=== PATIENT | male | born 1990 | race Caucasian/White ===

== ENCOUNTER 2020-07-19 20:06 | Emergency (ER) | payer OTHER, SELFPAY ==
--- NOTE | ~2020-07-19 | XR_ITS ---
EXAMINATION: XR chest 2V DATE: 07/19/2020 21:02 INDICATION: Cough and congestion TECHNIQUE: PA and lateral views of the chest were obtained. COMPARISON: None FINDINGS: The lungs are clear with no focal airspace opacities, pulmonary edema, pleural effusion or pneumothor ax. The cardiomediastinal silhouette is normal. Mild thoracic spondylosis. IMPRESSION: 1. No acute cardiopulmonary disease. Reviewed, dictated and finalized at location A. [place] RIGGER
[2020-07-19 20:11] VITALS: BP 126/81; PULSE 98; RESP 22; TEMP 36.3; O2SAT 100
--- NOTE | 2020-07-19 20:52 | ED.URI ---
HPI - URI/Sore Throat General Chief Complaint: Upper Respiratory Infection Stated Complaint: congestion, cough, boil on groin Time Seen by Provider: 07/19/20 20:42 Source: patient Mode of arrival: ambulatory Limitations: no limitations History of Present Illness HPI Narrative: This 30-year-old male comes into the emergency department tonight with complaints of cough and shortness of breath. He denies any fevers or chills. Patient states he was recently tested for Covid at the drive[facility]through [facility] screening location. He was told that this was negative. He notes that his young daughter also has similar symptoms. He states that he has been taking Mucinex with no relief. Patient also complains of a boil in his groin that recently opened up. Patient states he is concerned that it may be infected. Related Data Home Medications Medication Instructions Recorded Confirmed No Home Medications 07/19/20 07/19/20 Allergies Allergy/AdvReac Type Severity Reaction Status Date / Time No Known Allergies Allergy Verified 07/19/20 20:12 Review of Systems Review of Systems: Narrative: CONSTITUTIONAL: Denies fever, chills, or sweats. EYES: Denies visual changes, redness, or discharge. ENT: Denies rhinorrhea, congestion, sore throat, or otalgia. CARDIOVASCULAR: Denies chest pain, palpitations, or edema. RESPIRATORY: Endorses cough and dyspnea. GASTROINTESTINAL: Denies abdominal pain, nausea, vomiting, or diarrhea. GENITOURINARY: Denies dysuria or hematuria. SKIN: Denies rash or itching. MUSCULOSKELETAL: Denies back pain, joint pain, or myalgia. NEUROLOGIC: Denies headache, numbness, dizziness, or weakness. PSYCHIATRIC: Denies anxiety or depression. Exam Narrative: Exam Narrative: GENERAL: Well-appearing, well-nourished, and in no acute distress. HEAD: Normocephalic, atraumatic. EYES: PERRLA and EOMI. ENT: Nares clear, no rhinorrhea or epistaxis. Mucous membranes moist. NECK: Supple. No adenopathy or masses. No carotid bruits or JVD CHEST: No respiratory distress. Rhonchi diffusely HEART: Regular rate and rhythm. No murmur heard. Normal peripheral pulses. ABDOMEN: Soft, nontender, nondistended, normal active bowel sounds. : Normal external genitalia, small open cyst seen in the right groin crease under the R scrotum EXTREMITIES: Normal range of motion. No edema. SKIN: Warm, dry, no rash. NEURO: No focal deficits. Alert and oriented x3. PSYCH: Normal mood and affect. Course Reevaluation(s) Reevaluation #1: Pt is sitting resting comfortably, with no issues at this time. Time: 21:35 Vital Signs Vital signs: Vital Signs Temperature 36.3 C L 07/19/20 20:11 Pulse Rate 98 07/19/20 20:11 Respiratory Rate 22 H 07/19/20 20:11 Blood Pressure 126/81 07/19/20 20:11 Pulse Oximetry 100 07/19/20 20:11 Temperature 36.3 C L 07/19/20 20:11 Pulse Rate 98 07/19/20 20:11 Respiratory Rate 22 H 07/19/20 20:11 Blood Pressure 126/81 07/19/20 20:11 Pulse Oximetry 100 07/19/20 20:11 MDM - URI/Sore Throat MDM Narrative Medical decision making narrative: In brief this is a 30-year-old male came into the ER with multiple complaints. First patient stated that he had a cyst that opened up and drained in his groin. Patient states that he was curious if this was infected. Visual inspection of the area did show an open cyst, there was no active signs of infection. This may have been an early sebaceous cyst. Antibiotics not indicated at this time. Second patient was complaining of viral URI symptoms did have rhonchi on exam. Chest x-ray was clear. Likely source viral etiology. Did encourage patient to continue going with symptomatic medications and humidified air. Medical Records Attestation: I reviewed the patient's medical records. Imaging Data Attestation: I personally reviewed and interpreted this imaging study as follows: Radiologist's impression: ITS Impressions Chest X-Ray 07/19/20 21:08 I
== END 2020-07-19 22:03 | disposition home or self-care (01) ==
PROVIDERS: Emergency Provider Emergency Medicine
DX: B34.9 Viral infection, unspecified (principal); L72.9 Follicular cyst of the skin and subcutaneous tissue, unspecified
CPT/HCPCS: 71046; 99283

== ENCOUNTER 2020-08-12 18:00 | Emergency (ER) | payer OTHER, SELFPAY ==
[2020-08-12 18:12] VITALS: BP 138/76; PULSE 100; RESP 18; TEMP 36.7; O2SAT 100
[2020-08-12 19:12] LABS: Add Urine Microscopic? NO; Appearance Urine Clear (Clear); Bilirubin Urine Negative (Negative); Blood Urine Negative (Negative); Color Urine Straw (Yellow); Glucose Urine UA Negative (Negative); Ketones Urine Negative (Negative); Leukocyte Esterase Ur Negative LEU/UL (Negative); Nitrate Urine Negative (Negative); Protein Urine Negative (Negative); Specific Grav Ur 1.008 (1.001-1.035); Urobilinogen Urine Negative mg/dL (<2.0)
--- NOTE | 2020-08-12 19:16 | ED.GENADULT ---
HPI - General Adult General Chief complaint: Urogenital-Male Stated complaint: discharge Time Seen by Provider: 08/12/20 19:11 Source: patient Mode of arrival: ambulatory Limitations: no limitations History of Present Illness HPI narrative: Patient is a 30-year-old male who presents with some penile discharge described as white for the last several days denies any new sexual partners but does note that he has had gonorrhea in the past patient also notes small lesion along the left groin near the scrotum where he has a small boil that he drained with history of boils. Patient denies other concerns or symptoms does not currently have a primary care doctor Related Data Allergies Allergy/AdvReac Type Severity Reaction Status Date / Time No Known Allergies Allergy Verified 07/19/20 20:12 Review of Systems Review of Systems: All systems reviewed & are unremarkable except as noted in HPI and below PMFSH Social History Social History (Updated 08/12/20 @ 19:17 by Gee Mccullough PA-C) Smoking status: Current every day smoker Exam Narrative: Exam Narrative: GENERAL: Well-appearing, well-nourished, and in no acute distress. HEAD: Normocephalic, atraumatic. EYES: PERRLA and EOMI. ENT: Nares clear, no rhinorrhea or epistaxis. Mucous membranes moist. CHEST: Clear to auscultation. No respiratory distress. No wheezes rales or rhonchi HEART: Regular rate and rhythm. No murmur heard. EXTREMITIES: Normal range of motion. No edema. Small 1 cm nonerythematous cystic lesion to the left groin along the scrotum no cellulitic changes or drainage SKIN: Warm, dry, no rash. NEURO: No focal deficits. Alert and oriented x3. PSYCH: Normal mood and affect. Course Course Emergency Course: Patient in the room aware of case findings treatment plan diagnosis resting in the room comfortably will be discharged on antibiotics with follow-up with primary care given reasons to return patient feels comfortable with this plan Vital Signs Vital signs: Vital Signs Temperature 98.1 F 08/12/20 18:12 Pulse Rate 100 08/12/20 18:12 Respiratory Rate 18 08/12/20 18:12 Blood Pressure 138/76 08/12/20 18:12 Pulse Oximetry 100 08/12/20 18:12 Temperature 98.1 F 08/12/20 18:12 Pulse Rate 100 03/09/21 18:12 Respiratory Rate 18 08/12/20 18:12 Blood Pressure 138/76 08/12/20 18:12 Pulse Oximetry 100 08/12/20 18:12 Medical Decision Making MDM Narrative Medical decision making narrative: Patient presented with penile discharge small scrotal lesion will be discharged with outpatient follow-up placed on antibiotic Vital Signs Vital Signs: Vital Signs Temperature 98.1 F 08/12/20 18:12 Pulse Rate 100 08/12/20 18:12 Respiratory Rate 18 08/12/20 18:12 Blood Pressure 138/76 08/12/20 18:12 Pulse Oximetry 100 08/12/20 18:12 Temperature 98.1 F 08/12/20 18:12 Pulse Rate 100 08/12/20 18:12 Respiratory Rate 18 08/12/20 18:12 Blood Pressure 138/76 08/12/20 18:12 Pulse Oximetry 100 08/12/20 18:12 Lab Data Labs: Lab Results 08/12/20 08/12/20 Range/Units 19:00 19:00 Urine Color Straw (Yellow) Urine Appearance Clear (Clear) Urine pH 6.0 (5.0-9.0) Ur Specific [place] 1.008 (1.001-1.035) Urine Protein Negative (Negative) mg/dL Urine Glucose (UA) Negative (Negative) mg/dL Urine Ketones Negative (Negative) mg/dL Ur Blood (Man) Negative (Negative) Urine Nitrate Negative (Negative) Urine Bilirubin Negative (Negative) Urine Urobilinogen Negative (<2.0) mg/dL Leukocyte Esterase Rfl Negative (Negative) SANGEETHA/UL C.trachomatis RNA (TMA) Pending N.gonorrhoeae RNA (TMA) Pending T. vaginalis Amp RNA Pending Discharge Plan Discharge Clinical Impression: Urethritis, Abscess Patient Disposition: Home, Self-Care Condition: Stable Instructions: Antibiotic Form, Nonspecific Urethritis in Men (ED), Abscess (ED) Additional Inst
[2020-08-12 19:46] VITALS: BP 132/83; PULSE 95; RESP 16; TEMP 36.6; O2SAT 100
[2020-08-12] MEDS: cefTRIAXone 250 MG VIAL 500 MG IM (19:47)
== END 2020-08-12 19:50 | disposition home or self-care (01) ==
LOC: ANHED 19:39
PROVIDERS: Physician Assistant; Emergency Provider Emergency Medicine
DX: N34.2 Other urethritis (principal); N49.2 Inflammatory disorders of scrotum; F17.200 Nicotine dependence, unspecified, uncomplicated
CPT/HCPCS: 81003; 87491; 87591; 87661; 96372; 99283; J0696

== ENCOUNTER 2021-01-19 10:32 | Emergency (ER) | payer OTHER, SELFPAY ==
[2021-01-19 10:33] VITALS: BP 109/68; PULSE 106; RESP 20; TEMP 37.1; O2SAT 98
[2021-01-19 13:01] LABS: Add Urine Microscopic? YES; Appearance Urine Cloudy (Clear); Bilirubin Urine Negative (Negative); Blood Urine Negative (Negative); Color Urine Yellow (Yellow); Glucose Urine UA Negative (Negative); Ketones Urine Negative (Negative); Leukocyte Esterase Ur Negative LEU/UL (Negative); Nitrate Urine Negative (Negative); Protein Urine Negative (Negative); RBC Urine 0-2 /hpf (0-2); Specific Grav Ur 1.013 (1.001-1.035); Squamous Epithelial Cell Urine Rare /hpf (Few); Urobilinogen Urine Negative mg/dL (<2.0); WBC Urine 0-3 /hpf
--- NOTE | 2021-01-19 13:20 | PC.NURSE ---
Urine cup sent to lab earlier with UA. Add on specimen called to lab at this time.
--- NOTE | 2021-01-19 14:19 | ED.FALL ---
HPI - Fall General Chief Complaint: Urogenital-Male Stated Complaint: GROIN PAIN Time Seen by Provider: 01/19/21 11:52 Source: patient and EMS Mode of arrival: ambulatory Limitations: no limitations History of Present Illness HPI Narrative: Patient a 30-year-old male who presents to emergency department for evaluation of some groin pain testicular pain has been going on for 2 months notes that he had been treated and tested for gonorrhea patient notes he had not been with a sexual partner that he believed he had obtained the infection from patient denies any dysuria or other complaints presents in no distress denies any swelling or deformity of the scrotum or testicles Related Data Home Medications Medication Instructions Recorded Confirmed buspirone 5 mg PO BID 01/19/21 01/19/21 Allergies Allergy/AdvReac Type Severity Reaction Status Date / Time No Known Allergies Allergy Verified 01/19/21 11:51 Review of Systems Review of Systems: All systems reviewed & are unremarkable except as noted in HPI and below PMFSH Social History Social History Smoking status: Current every day smoker Gender identity (if verbalized by the patient): Male Exam Narrative: GENERAL: Well-appearing, well-nourished, and in no acute distress. HEAD: Normocephalic, atraumatic. EYES: PERRLA and EOMI. ENT: Nares clear, no rhinorrhea or epistaxis. Mucous membranes moist. CHEST: Clear to auscultation. No respiratory distress. No wheezes rales or rhonchi HEART: Regular rate and rhythm. No murmur heard. Normal peripheral pulses. ABDOMEN: Soft, nontender, nondistended EXTREMITIES: Normal range of motion. No edema. SKIN: Warm, dry, no rash. NEURO: No focal deficits. Alert and oriented x3. PSYCH: Normal mood and affect. Course Course Emergency Course: Patient in the room in no distress case findings were reviewed he understands that he will need to follow-up for his gonorrhea chlamydia culture. He is afebrile nontoxic-appearing in no distress and will be followed on an outpatient basis notes that he will follow up with urology as instructed and understands reasons to return Vital Signs Vital signs: Vital Signs Temperature 98.8 F 01/19/21 10:33 Pulse Rate 106 H 01/19/21 10:33 Respiratory Rate 20 08/16/21 10:33 Blood Pressure 109/68 01/19/21 10:33 Pulse Oximetry 98 01/19/21 10:33 Temperature 98.8 F 01/19/21 10:33 Pulse Rate 106 H 01/19/21 10:33 Respiratory Rate 20 01/19/21 10:33 Blood Pressure 109/68 01/19/21 10:33 Pulse Oximetry 98 01/19/21 10:33 MDM - Fall MDM Narrative Medical decision making narrative: Patient with dysuria will be followed on an outpatient basis agreeing to follow-up as instructed likely urethritis given his history. No hematuria or urinary tract infection noticed on initial exam will have urine culture and gonorrhea and Chlamydia culture sent off Lab Data Labs: Lab Results 01/19/21 01/19/21 Range/Units 12:46 12:48 Urine Color Yellow (Yellow) Urine Appearance Cloudy H (Clear) Urine pH 6.0 (5.0-9.0) Ur Specific [place] 1.013 (1.001-1.035) Urine Protein Negative (Negative) mg/dL Urine Glucose (UA) Negative (Negative) mg/dL Urine Ketones Negative (Negative) mg/dL Ur Blood (Man) Negative (Negative) Urine Nitrate Negative (Negative) Urine Bilirubin Negative (Negative) Urine Urobilinogen Negative (<2.0) mg/dL Leukocyte Esterase Rfl Negative (Negative) SANGEETHA/UL Urine RBC 0-2 (0-2) /hpf Urine WBC 0-3 /hpf Ur Squamous Epith Cells Rare (Few) /hpf C.trachomatis RNA (TMA) Pending N.gonorrhoeae RNA (TMA) Pending Urine Characteristics Cloudy Discharge Plan Discharge Clinical Impression: Urethritis Patient Disposition: Home, Self-Care Condition: Stable Instructions: Antibiotic Fo
[2021-01-19 14:30] VITALS: BP 113/84; PULSE 80; RESP 18; O2SAT 99
== END 2021-01-19 14:35 | disposition home or self-care (01) ==
PROVIDERS: Emergency Medicine Emergency Medical Services; Emergency Provider Emergency Medicine; PCP Family Medicine
DX: N34.2 Other urethritis (principal); F17.200 Nicotine dependence, unspecified, uncomplicated
CPT/HCPCS: 81001; 87086; 87491; 87591; 99283

== ENCOUNTER 2023-01-04 09:28 | Emergency (ER) | payer OTHER, SELFPAY ==
--- NOTE | ~2023-01-04 | XR_ITS ---
Clinical Indication: Syncope PA and lateral views of the chest: Comparison: 07/19/2020 Findings: The lungs are clear, without evidence of focal consolidation or pleural effusion. Possible COPD. Cardiomediastinal silhouette is within normal limits. Bones and soft tissues are unremarkable. Impression: Possible COPD. Clear lungs. Reviewed, dictated and finalized at location . Impression: Possible COPD. Clear lungs.
--- NOTE | ~2023-01-04 | CT_ITS ---
EXAMINATION: CT brain wo con DATE: 01/04/2023 10:51 INDICATION: Syncope. TECHNIQUE: Computed tomography (CT) of the head was performed without intravenous contrast. The mA wa s adjusted according to patient size. Iterative reconstruction technique was employed. The dose-lengt h product was 605.33 mGy-cm. COMPARISON: None FINDINGS: There is no intracranial hemorrhage, acute infarction, or abnormal intracranial mass lesion . The ventricles are normal in size. The orbits are normal. There is mild mucosal thickening in the p aranasal sinuses. The mastoid air cells are normal. IMPRESSION: 1. Normal brain. Reviewed, dictated and finalized at location A. IMPRESSION: 1. Normal brain.
[2023-01-04 09:27] VITALS: BP 110/73; PULSE 79; RESP 16; TEMP 36.4; O2SAT 98
--- NOTE | 2023-01-04 09:34 | ECG_ITS ---
Measurements Intervals [place] Rate: 81 P: 56 [place]: 138 QRS: 47 QRSD: 100 T: 44 QT: 389 QTc: 454 Interpretive Statements SINUS RHYTHM INTERPRETATION BASED ON A DEFAULT AGE OF 40 YEARS NO PREVIOUS ECG AVAILABLE FOR COMPARISON Electronically Signed On 01-04-2023 13:55:25 CDT by La Nena Garcia M.D.
[2023-01-04 09:37] VITALS: PULSE 77
[2023-01-04 09:38] VITALS: O2SAT 98
[2023-01-04 09:38] LABS: Glucose Point of Care 95 mg/dl (65-105)
--- NOTE | 2023-01-04 09:38 | ED.SYNCOPE ---
HPI - Syncope General Chief Complaint: Syncope Stated Complaint: AMS Time Seen by Provider: 01/04/23 09:34 Source: patient Mode of arrival: EMS Limitations: other (patient does not fully remember incident) History of Present Illness HPI narrative: This is a 32-year-old male that presents to the emergency department for syncopal episode today. Reports he was at work and started to feel lightheaded. Reports he bent forward and saw some black spots in his vision. When he stood up he passed out. Reports no prior syncopal episodes. He does think that he hit his head. He woke up with the ambulance crew arrived. He does not have any symptoms currently. Denies any prodromal chest pain, palpitations or shortness of breath. Denies visual changes, vomiting, numbness, or weakness. Related Data Home Medications Medication Instructions Recorded Confirmed buspirone 5 mg tablet 5 mg PO BID 01/19/21 01/19/21 Allergies Allergy/AdvReac Type Severity Reaction Status Date / Time No Known Allergies Allergy Verified 01/04/23 09:40 Review of Systems Review of Systems: CONSTITUTIONAL: Denies fever EYES: Denies visual changes CARDIOVASCULAR: Denies chest pain, palpitations, or edema. RESPIRATORY: Denies dyspnea. GASTROINTESTINAL: Denies vomiting NEUROLOGIC: Denies numbness, or weakness. All systems reviewed & are unremarkable except as noted in HPI and below PMFSH Past Medical History Medical History (Updated 01/04/23 @ 12:05 by Odalys Fuller PA-C) History of anxiety Social History Social History Smoking status: Current every day smoker Gender identity (if verbalized by the patient): Male Exam Narrative: GENERAL: Well-appearing, well-nourished, and in no acute distress. HEAD: Normocephalic, atraumatic. EYES: PERRLA and EOMI. ENT: Nares clear, no rhinorrhea or epistaxis. Mucous membranes moist. Oropharynx without tonsillar hypertrophy exudate or other lesions. Bilateral TMs pearly cervantes non-bulging NECK: Supple. No adenopathy or masses. No JVD CHEST: No respiratory distress. Faint, scattered wheezes. No rales or rhonchi HEART: Regular rate and rhythm. No murmur heard. Normal peripheral pulses. EXTREMITIES: Normal range of motion. No edema. Strength equal in bilateral upper and lower extremities (5/5) SKIN: Warm, dry, no rash. NEURO: No focal deficits. Alert and oriented x3. Cranial nerves II through XII grossly intact PSYCH: Normal mood and affect Course Course Emergency Course: Patient was updated on workup and agrees with plan of care. Reports feeling well Vital Signs Vital signs: Vital Signs Temperature 97.5 F L 01/04/23 09:27 Pulse Rate 79 01/04/23 09:27 Respiratory Rate 16 01/04/23 09:27 Blood Pressure 110/73 01/04/23 09:27 Pulse Oximetry 98 01/04/23 09:27 Oxygen Delivery Room Air 01/04/23 09:27 Temperature 97.5 F L 01/04/23 09:27 Pulse Rate 65 01/04/23 10:35 Respiratory Rate 13 01/04/23 10:35 Blood Pressure 115/75 01/04/23 10:35 Pulse Oximetry 98 01/04/23 10:35 Oxygen Delivery Room Air 01/04/23 09:38 MDM - Syncope MDM Narrative Medical decision making narrative: Patient presents to the emergency department after syncopal episode at work. He denies any prodromal chest pain or shortness of breath. He did report feeling lightheaded prior to. He is afebrile and nontoxic-appearing. He is neurologically intact. His vitals are stable. CBC shows mild macrocytic anemia with hemoglobin of 13.2. Metabolic panel without concerning findings. UA with evidence of infection. This will be sent for culture. Urine drug screen is negative. Baseline troponin is negative. EKG without concerning changes. CT scan of the brain is normal. Chest x-ray with clear lungs, possible COPD. I did note some faint, scattered wheezing on exam. Will be prescribed albuterol inhaler. Patient did report possi
[2023-01-04 09:55] LABS: Basophils Absolute Auto 0.1 K/mm3 (0.0-0.1); Eosinophils Absolute Auto 0.1 K/mm3 (0-0.3); Eosinophils Percent Auto 1.5 % (0-4.4); Hematocrit 41.5 % (42.0-52.0); Hemoglobin 13.2 g/dL (14.0-18.0); Immature Granulocyte Absolute 0.01 K/mm3 (0.00-0.031); Immature Granulocyte Percent A 0.2 % (0-0.5); Lymphocytes Percent Auto 19.6 % (18.3-44.2); Mean Corpuscular HGB Conc 31.8 g/dl (32-36); Mean Corpuscular Volume 103.8 fl (80-100); Mean Platelet Volume 10.5 fl (7.4-10.4); Monocytes Absolute Auto 0.5 K/mm3 (0.1-0.6); Neutrophils Absolute Auto 4.3 K/mm3 (1.3-6.7); Neutrophils Percent Auto 69.7 % (45.5-73.1); Platelet Count Result 234 k/mm3 (150-375); Red Cell Distribution Width 12.8 % (11.5-14.5); White Blood Count 6.1 K/mm3 (4.5-10.0)
[2023-01-04 10:05] LABS: INR 1.1; Prothrombin Time 14.7 Seconds (11.1-14.7)
--- NOTE | 2023-01-04 10:05 | PC.NURSE ---
Pt to CT scan via stretcher at this time.
[2023-01-04 10:06] LABS: Partial Thromboplastin Time 28.1 SECONDS (22.3-36.8)
[2023-01-04 10:08] LABS: Alanine Aminotransferase 19 U/L (6-50); Albumin Level 4.3 g/dL (3.5-5.1); Alkaline Phosphatase 69 U/L (38-126); Anion Gap 8 mmol/L (8-16); Aspartate Amino Transferase 20 U/L (17-59); Bilirubin,Total 1.6 mg/dL (0.2-1.3); Blood Urea Nitrogen 12 mg/dL (9-20); Calcium 8.8 mg/dL (8.4-10.2); Carbon Dioxide 25 mmol/L (22-30); Chloride 107 mmol/L (98-107); Estimated CRCL calculation 96 ml/min; Estimated Glomerular Filt Rate > 60; Glucose 98 mg/dL (65-110); Potassium 4.1 mmol/L (3.4-5.0); Sodium 140 mmol/L (137-145)
[2023-01-04 10:30] VITALS: BP 115/75; PULSE 71; RESP 15; O2SAT 98
[2023-01-04] MEDS: SODIUM CHLORIDE 0.9% IV 1,000 ML 999 ML IV CONT (10:34)
[2023-01-04 10:35] VITALS: BP 115/75; PULSE 65; RESP 13; O2SAT 98
[2023-01-04 10:37] LABS: Amphetamine Screen Urine Negative (Negative); Appearance Urine Cloudy (Clear); Bacteria Urine None Seen /hpf; Barbiturate Screen Urine Negative (Negative); Benzodiazepines Screen Urine Negative (Negative); Bilirubin Urine 1+ (Negative); Blood Urine Negative (Negative); Cannabinoid Screen Urine Negative (Negative); Cocaine Screen Urine Negative (Negative); Color Urine Dark Yellow (Yellow); Glucose Urine UA Negative (Negative); Ketones Urine Trace mg/dL (Negative); Leukocyte Esterase Ur 1+ LEU/UL (Negative); Methadone Screen Urine Negative (Negative); Need Manual Microscopic Reviewed; Nitrate Urine Negative (Negative); Non Pathogenic Casts 0-2; Opiate Screen Urine Negative (Negative); Phencyclidine Screen Urine Negative (Negative); Protein Urine Trace mg/dL (Negative); Specific Grav Ur 1.025 (1.001-1.035); Squamous Epithelial Cell Urine Occasional /hpf (Few)
[2023-01-04 10:38] LABS: Add Urine Microscopic? YES
[2023-01-04 11:11] LABS: Ethanol < 10 mg/dL (<10)
[2023-01-04 11:18] LABS: Troponin I < 0.012 ng/mL (0.000-0.034)
[2023-01-04] MEDS: cefTRIAXone 1 GM VIAL 0.5 GM IM (12:23)
[2023-01-04] MEDS: metroNIDAZOLE 250 MG TABLET 2000 MG PO (12:23)
[2023-01-04 12:24] VITALS: BP 100/63; PULSE 58; RESP 18; O2SAT 98
== END 2023-01-04 12:38 | disposition home or self-care (01) ==
PROVIDERS: Emergency Provider Physician Assistant; PCP Family Medicine
DX: N39.0 Urinary tract infection, site not specified (principal); R55 Syncope and collapse; F41.9 Anxiety disorder, unspecified; F17.200 Nicotine dependence, unspecified, uncomplicated
CPT/HCPCS: 36415; 70450; 71046; 80053; 80307; 81001; 82948; 84484; 85025; 85610; 85730; 87086; 87491; 87591; 93005; 96360; 96372; 99284; A9270; J0696; J7030

== ENCOUNTER 2023-08-08 22:05 | Emergency (ER) | payer OTHER, SELFPAY ==
--- NOTE | ~2023-08-08 | XR_ITS ---
EXAMINATION: XR chest 2V Exam Date/Time: 08/08/2023 22:25 SALVAGE CUTTER HISTORY: sob , COUGH AND HEADACE Comparison: 01/04/2023. RESULT: Lines, tubes, and devices: None. Lungs and pleura: Clear. Cardiomediastinal silhouette: Stable. Other: No acute osseous or upper abdominal finding. IMPRESSION: No acute cardiopulmonary process. Reviewed, dictated and finalized at location K. AGE CUTTER
--- NOTE | 2023-08-08 22:07 | ECG_ITS ---
Measurements Intervals [place] Rate: 96 P: 64 HI: 133 QRS: 50 QRSD: 91 T: 41 QT: 366 QTc: 463 Interpretive Statements SINUS RHYTHM NORMAL ECG COMPARED TO ECG 01/04/2023 09:35:31 NO SIGNIFICANT CHANGES Electronically Signed On 08-09-2023 6:44:32 [employer]UEPRINT TRACER by Luis Alberto Faria D.O.
[2023-08-08 22:17] VITALS: BP 136/66; PULSE 102; RESP 18; TEMP 36.8; O2SAT 95
[2023-08-08 22:26] LABS: Basophils Percent Auto 0.1 % (0.2-1.2); Hematocrit 38.6 % (42.0-52.0); Hemoglobin 12.1 g/dL (14.0-18.0); Immature Granulocyte Absolute 0.03 K/mm3 (0.00-0.031); Immature Granulocyte Percent A 0.3 % (0-0.5); Lymphocytes Absolute Auto 0.52 K/mm3 (0.9-3.2); Lymphocytes Percent Auto 5.8 % (18.3-44.2); Mean Corpuscular HGB Conc 31.3 g/dl (32-36); Mean Corpuscular Volume 108.4 fl (80-100); Mean Platelet Volume 10.5 fl (7.4-10.4); Monocytes Absolute Auto 0.2 K/mm3 (0.1-0.6); Monocytes Percent Auto 2.3 % (2.6-8.5); Neutrophils Absolute Auto 8.2 K/mm3 (1.3-6.7); Neutrophils Percent Auto 91.5 % (45.5-73.1); Platelet Count Result 241 k/mm3 (150-375); Red Blood Count 3.56 M/mm3 (4.6-6.20); Red Cell Distribution Width 12.2 % (11.5-14.5); White Blood Count 8.9 K/mm3 (4.5-10.0)
[2023-08-08 22:36] LABS: Alanine Aminotransferase 20 U/L (6-50); Albumin Level 4.4 g/dL (3.5-5.1); Alkaline Phosphatase 89 U/L (38-126); Anion Gap 11 mmol/L (8-16); Aspartate Amino Transferase 27 U/L (17-59); Blood Urea Nitrogen 23 mg/dL (9-20); Calcium 9.1 mg/dL (8.4-10.2); Carbon Dioxide 20 mmol/L (22-30); Chloride 107 mmol/L (98-107); Estimated CRCL calculation 95 ml/min; Estimated Glomerular Filt Rate > 60; Glucose 150 mg/dL (65-110); Potassium 4.1 mmol/L (3.4-5.0); Sodium 138 mmol/L (137-145)
[2023-08-08 22:39] LABS: Anisocytosis 1+ (NORMAL); Large Platelets Present; Macrocytosis 1+ (NORMAL); Platelet Estimate Adequate (Adequate); Schistocytes None Seen (NORMAL); Stomatocytes 1+ (NORMAL)
[2023-08-08 23:12] VITALS: O2SAT 94
--- NOTE | 2023-08-09 00:58 | PC.NURSE ---
Pt called for room, no answer
--- NOTE | 2023-08-09 01:16 | PC.NURSE ---
No answer when called for room.
== END 2023-08-09 01:35 | disposition left against medical advice (07) ==
PROVIDERS: Emergency Provider Emergency Medicine; PCP Family Medicine
DX: R06.02 Shortness of breath (principal)
CPT/HCPCS: 36415; 71046; 80053; 85025; 93005; 99199

== ENCOUNTER 2025-05-03 00:01 | Emergency (ER) | payer OTHER, SELFPAY ==
--- NOTE | ~2025-05-03 | XR_ITS ---
Examination: XR chest 2V Clinical History: cough, sob Comparison: 08/08/2023 Technique: PA and Lateral Findings: Cardiomediastinal silhouette normal size and configuration. Lungs clear. No acute bony abnormality. IMPRESSION: 1. No acute cardiopulmonary findings. Reviewed, dictated and finalized at location R. GED CARE SPECIALIST
[2025-05-03 00:10] VITALS: BP 139/81; PULSE 94; RESP 22; TEMP 36.7; O2SAT 90
--- NOTE | 2025-05-03 00:14 | ED_ITS ---
HPI - URI/Sore Throat General Chief Complaint: Upper Respiratory Infection Stated Complaint: cold symptoms Time Seen by Provider: 05/03/25 00:06 Source: patient Mode of arrival: ambulatory Limitations: no limitations History of Present Illness HPI Narrative: This is a 35-year-old male that presents to the emergency department for shortness of breath. Reports he has felt unwell over the last couple of days with a cough. He does have an albuterol inhaler at home. He has been using this with little relief. He is a smoker. Denies fevers. Related Data Allergies Allergy/AdvReac Type Severity Reaction Status Date / Time No Known Allergies Allergy Verified 05/03/25 01:22 Review of Systems 2 Review of Systems: All systems reviewed & are unremarkable except as noted in HPI and below PMFSH Past Medical History Medical History History of anxiety Social History Social History Smoking packs per day: 1 Smoking cigarettes per day: 20.0 Years smoked: 11 Smoking pack-years: 11.00 Smoking status: Current every day smoker Tobacco type: cigarettes Alcohol intake: never Substance use: never Substance use type: does not use Living arrangements: with family Gender identity (if verbalized by the patient): Male Spiritual care concerns: No Exam 2 Narrative: GENERAL: Well-appearing, well-nourished, and in no acute distress. HEAD: Normocephalic, atraumatic. EYES: EOMI. ENT: Nares clear, no rhinorrhea or epistaxis. Mucous membranes moist. Oropharynx without tonsillar hypertrophy exudate or other lesions. Bilateral TMs pearly cervantes non-bulging NECK: Supple. No adenopathy or masses. CHEST: No respiratory distress. Lung sounds diminished with expiratory wheezing. No rales or rhonchi HEART: Regular rate and rhythm. No murmur heard. Normal peripheral pulses. EXTREMITIES: Normal range of motion. No edema. SKIN: Warm, dry, no rash. NEURO: No focal deficits. Alert and oriented x3. PSYCH: Normal mood and affect Course Vital Signs Vital signs: Vital Signs Temperature 98.0 F 05/03/25 00:10 Pulse Rate 94 05/03/25 00:10 Respiratory Rate 22 H 05/03/25 00:10 Blood Pressure 139/81 05/03/25 00:10 Pulse Oximetry 90 05/03/25 00:10 Oxygen Delivery Room Air 05/03/25 00:10 Temperature 98.0 F 05/03/25 00:10 Pulse Rate 86 05/03/25 01:48 Respiratory Rate 20 05/03/25 02:35 Blood Pressure 139/81 05/03/25 00:10 Pulse Oximetry 94 05/03/25 02:35 Oxygen Delivery Room Air 05/03/25 00:10 MDM - URI/Sore Throat MDM Narrative Medical decision making narrative: Patient presents the emergency department for shortness of breath, COPD exacerbation. Hypoxic upon arrival. Placed on 4 L nasal cannula. He is afebrile and nontoxic appearing. CBC with mild leukocytosis to 11.1. Metabolic panel without concerning findings. Chest x-ray without acute cardiopulmonary abnormality. COVID, influenza, RSV screens are negative. Patient updated on his workup and need for admission. Patient does not want to stay in hospital at this time. He will sign out against medical advise Differential Diagnosis Differential diagnosis: Likely upper respiratory infection, bronchitis and other (COPD exacerbation, pneumonia) Lab Data Attestation: I reviewed the patient's lab results. 05/03/25 00:24 05/03/25 00:24 Labs: Lab Results 05/03/25 Range/Units 00:24 WBC 11.1 H (4.5-10.0) K/mm3 RBC 4.43 L (4.6-6.20) M/mm3 Hgb 14.4 (14.0-18.0) g/dL Hct 43.2 (42.0-52.0) % MCV 97.5 (80-100) fl MCH 32.5 (26-34) pg MCHC 33.3 (32-36) g/dl RDW 11.9 (11.5-14.5) % Plt Count 215 (150-375) k/mm3 MPV 10.9 H (7.4-10.4) fl Immature Gran % (Auto) 0.4 (0-0.5) % Neut % (Auto) 61.9 (45.5-73.1) % Lymph % (Auto) 24.4 (18.3-44.2) % Antelope % (Auto) 9.9 H (2.6-8.5) % Eos % (Auto) 2.8 (0-4.4) % Baso % (Auto) 0.6 (0.2-1.2) % Lymph # (Auto) 2.70 (0.9-3.2) K/mm3 Antelope # (Auto) 1.1 H (0.1-0.6) K/mm3 Eos # (Auto) 0.3 (0-0.3) K/mm3 Baso # (Auto) 0.1 (0.0-0.1) K/mm3 Abs Immat Gran (auto) 0.04 H (0.00-0.031) K/mm3 Absolute Neuts (auto) 6.8 H (1.3-6.7) K/mm3 Absolute Nucleated RBC 0.000 (0.0-0.012) K/mm3 Nucleated RBC % 0.0 (0.0-0.2) % PT 13.8 (11.1-14.7) Seconds INR 1.1 APTT 27.0 (22.3-36.8) Seconds Sodium 135 L (137-145) mmol/L Potassium 4.0 (3.4-5.0) mmol/L Chloride 106 (98-107) mmol/L Carbon Dioxide 24 (22-30) mmol/L Anion Gap 5 (4-12) mmol/L BUN 16 (9-20) mg/dL Creatinine 1.18 (0.7-1.3) mg/dL Estim Creat Clear Calc Not Reportable Estimated GFR > 60 (59 - ) Glucose 99 (65-110) mg/dL Calcium 9.1 (8.4-10.2) mg/dL Total Bilirubin 0.8 (0.2-1.3) mg/dL AST 29 (17-59) U/L ALT 21 (6-50) U/L Alkaline Phosphatase 97 (38-126) U/L Total Protein 7.6 (6.3-8.2) g/dL Albumin 4.4 (3.5-5.1) g/dL Influenza A (RT-PCR) Negative (Negative) Influenza B (RT-PCR) Negative (Negative) RSV (RT-PCR) Negative (Negative) SARS-CoV-2 RNA (RT-PCR) Negative (Negative) Imaging Data My impression: Chest x-ray: No acute cardiopulmonary abnormality Critical Care Time Critical Care Time Critical Care Time: Yes Total Critical Care Time: 35 Discharge Plan Discharge Clinical Impression: COPD exacerbation, Acute hypoxemic respiratory failure Patient Disposition: Left Against Medical Advice Condition: Guarded Prognosis Instructions: COPD (Chronic Obstructive Pulmonary Disease) (ED) Additional Instructions: Return at any time for further evaluation and management Continue oral steroid as prescribed. Albuterol 2 puffs every 4-6 hours as needed for shortness of breath or wheezing Follow up with primary care doctor Patient Language: Zambian Prescriptions: New prednisone 20 mg tablet 60 mg PO DAILY 4 Days Qty: 12 0RF No Action omeprazole 40 mg capsule,delayed release(DR/EC) 40 mg PO DAILY Qty: 90 1RF albuterol sulfate [Proventil HFA] 90 mcg/actuation HFA aerosol inhaler 2 puff inhalation Q4-6H PRN (Reason: shortness of breath or wheezing) Qty: 8.5 5RF fluoxetine 20 mg capsule See Rx Instructions .ROUTE .COMPLEX Qty: 30 0RF Dose Instruction: TAKE 1 CAPSULE BY MOUTH DAILY Rx Instructions: TAKE 1 CAPSULE BY MOUTH DAILY Follow-up/Referrals: Starr Milligan APRN [Primary Care Provider, Internal Medicine]
[2025-05-03 00:20] VITALS: PULSE 74; RESP 20
[2025-05-03] MEDS: MAGNESIUM SULF 2 GM/WATER 50ML 2 GM/50 ML BAG IVPB (00:27)
[2025-05-03 00:30] LABS: Hematocrit 43.2 % (42.0-52.0); Hemoglobin 14.4 g/dL (14.0-18.0); Immature Granulocyte Percent A 0.4 % (0-0.5); Lymphocytes Absolute Auto 2.70 K/mm3 (0.9-3.2); Mean Corpuscular HGB Conc 33.3 g/dl (32-36); Mean Corpuscular Hemoglobin 32.5 pg (26-34); Mean Corpuscular Volume 97.5 fl (80-100); Nucleated Red Blood Cells Absolute Auto 0.000 K/mm3 (0.0-0.012); Nucleated Red Blood Cells Perc 0.0 % (0.0-0.2); Platelet Count Result 215 k/mm3 (150-375); Red Blood Count 4.43 M/mm3 (4.6-6.20); White Blood Count 11.1 K/mm3 (4.5-10.0)
[2025-05-03] MEDS: IPRATROPIUM 0.5 MG/ALBUTEROL SULFATE 2.5 MG (BASE) AMPUL.NEB 3 ML INHALATION ×2 (00:39→01:40)
[2025-05-03 00:41] LABS: INR 1.1; Prothrombin Time 13.8 Seconds (11.1-14.7)
[2025-05-03 00:42] LABS: Alanine Aminotransferase 21 U/L (6-50); Albumin Level 4.4 g/dL (3.5-5.1); Alkaline Phosphatase 97 U/L (38-126); Anion Gap 5 mmol/L (4-12); Aspartate Amino Transferase 29 U/L (17-59); Bilirubin,Total 0.8 mg/dL (0.2-1.3); Blood Urea Nitrogen 16 mg/dL (9-20); Calcium 9.1 mg/dL (8.4-10.2); Carbon Dioxide 24 mmol/L (22-30); Chloride 106 mmol/L (98-107); Estimated Glomerular Filt Rate > 60; Glucose 99 mg/dL (65-110); Partial Thromboplastin Time 27.0 Seconds (22.3-36.8); Potassium 4.0 mmol/L (3.4-5.0); Sodium 135 mmol/L (137-145); Total Protein 7.6 g/dL (6.3-8.2)
[2025-05-03 00:47] VITALS: PULSE 81; RESP 20
[2025-05-03 01:06] LABS: Influenza A QL RT-PCR Negative (Negative); Influenza B QL RT-PCR Negative (Negative); RSV RNA, RT-PCR Negative (Negative); SARS-CoV-2 RNA PCR Negative (Negative)
[2025-05-03 01:40] VITALS: PULSE 85; RESP 20
[2025-05-03 01:48] VITALS: PULSE 86; RESP 20
[2025-05-03 02:35] VITALS: RESP 20; O2SAT 94
== END 2025-05-03 02:36 | disposition left against medical advice (07) ==
PROVIDERS: Emergency Provider Physician Assistant; PCP Nurse Practitioner Family
DX: J96.01 Acute respiratory failure with hypoxia (principal); J44.1 Chronic obstructive pulmonary disease with (acute) exacerbation; Z20.822 Contact with and (suspected) exposure to COVID-19; F41.9 Anxiety disorder, unspecified; F17.210 Nicotine dependence, cigarettes, uncomplicated; Z79.899 Other long term (current) drug therapy
CPT/HCPCS: 36415; 71046; 80053; 85025; 85610; 85730; 87637; 94640; 96365; 96375; 99284; J2919; J3475

== ENCOUNTER 2025-05-09 09:25 | Emergency (ER) | payer MEDICAID, SELFPAY ==
[2025-05-09 09:34] VITALS: BP 147/91; PULSE 85; RESP 16; TEMP 36.6; O2SAT 98
--- OUTSIDE RECORDS SUMMARY | 2025-05-09 10:12 | XMS_ITS | Clinical Summary ---
Author Organization [facility] Address [address] [place] [id number] Care Team Providers Care Confidential Secretary Name Role Phone Terrence Gray MD Primary Care Provide r Allergies No known active allergies Medications ondansetron (ZOFRAN) 4 mg tablet Take 1 tablet (4 mg total) by mouth every 6 (six) hours 12 tablet 4 Active Additional Information Patient not taking.Reported on 09/20/2023 busPIRone (BUSPAR) 10 mg tablet Take 1 tablet (10 mg total) by mouth 2 (two) times a day Active fluticasone propion-salmete roL (WIXELA INHUB) 100-50 mcg/dose diskus inhalerIndicati ons:Maintenance Therapy for Asthma Inhale 1 puff 2 (two) times a day Rinse mouth with water after use. Do not swallow. 60 each 5 4 Active nicotine polacrilex (NICORETTE) 2 mg gum Chew 1 each (2 mg total) as needed for smoking cessation 100 each 3 4 Active albuterol HFA (ProAir HFA) 90 mcg/actuation inhaler Inhale 2 puffs every 4 (four) hours as needed for wheezing or shortness of breath 8.5 g 5 4 Active Active Problems Problem Noted Date Diagnosed Date Asthma, persistent not controlled 10/04/2023 Encounter for tobacco use cessation counseling 0 10/04/2023 Nicotine dependence, cigarettes, uncomplicated 0 10/04/2023 Dyspnea 09/20/2023 Family History Medical History Relation Name Comments Stroke Mother Relation Name Status Comments Mother Social History Tobacco Use Types Packs/Day Years Used Date Smoking Tobacco: Every Day Cigarettes Smokeless Tobacco: Never Tobacco Cessation:Ready to Q uit: Not Asked; Counseling Given: Not Answered Personal Safety Answer Date Recorded Have you ever been in or are you currently in a harmful physical or emotional relationship or is someone making you feel afraid or unsafe? 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 Gender Identity Not on file Sexual Orientation Not on file Last Filed Vital Signs Vital Sign Reading Time Taken Comments Blood Pressure 124/74 01/08/2024 4:53 PM CDT Pulse 100 01/08/2024 4:53 PM CDT Temperature 36.5 C (97.7 F) 01/08/2024 4:53 PM CDT Respiratory Rate 16 01/08/2024 4:53 PM CDT Oxygen Saturation 93% 01/08/2024 4:53 PM CDT Inhaled Oxygen Concentration - - Weight 98.4 kg (217 lb) 01/08/2024 4:53 PM CDT Height 195.6 cm (6' 5) 01/08/2024 4:53 PM CDT Body Mass Index 25.73 01/08/2024 4:53 PM CDT Plan of Treatment Health Maintenance Due Date Last Done Comments Depression Screening 1989 Hepatitis C Screening 1989 Varicella Vaccines (1 of 2 - 13+ 2-dose series) 2002 DTaP/Tdap/Td Vaccine (6 - Tdap) 01/08/2004 01/07/2004, 10/22/1994, 11/13/1990, Additional history exists Regular Well Visit/Exam 18-64 2007 Pneumococcal vaccine <65 (1 of 2 - PCV) 2008 HPV Vaccines (2 - 3-dose SCD M series) 11/27/2020 10/30/2020 Covid-19 Vaccine (2 - 2024-2 6 season) 2025 12/11/2020 Influenza Vaccine (#1) 2025 Hepatitis B Screening Completed 07/21/[address] [place] [address] [facility] Care Teams Confidential Secretary Relationship Specialty Start Date End Date Terrence Gray MD [address] [facility] [address] [place] [address] PCP - General Internal Medicine 09/20/23
--- OUTSIDE RECORDS SUMMARY | 2025-05-09 10:12 | XMS_ITS | Clinical Summary ---
Author Organization [facility] Address [address] [facility] [place] [address] Care Team Providers Care Messenger Copy Name Role Phone Unavailable Primary Care Provider Unavailabl e Source Comments [facility],non-owned Affiliates and Associated Physician Practices is amultiple site organization consisting of ambulatory clinics and hospital sitesin [place], [place], [place] and [place]. This disclosure is being madepursuant to the Care Everywhere program and may not contain all information available regarding this patient. Last updated 18.[facility] Allergies No known active allergies Medications * Be aware that medications may not be up to date on this document. Alwaysverify current medications with the patient. 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 Gender Identity Not on file Sexual Orientation Not on file Last Filed Vital Signs Vital Sign Reading Time Taken Comments Blood Pressure 118/80 08/13/2017 12:19 PM APPLICATION ARCHITECT Pulse 89 08/13/2017 12:19 PM APPLICATION ARCHITECT Temperature 36.8 C (98.3 F) 08/13/2017 12:19 PM APPLICATION ARCHITECT Respiratory Rate 14 08/13/2017 12:19 PM APPLICATION ARCHITECT Oxygen Saturation 97% 08/13/2017 12:19 PM APPLICATION ARCHITECT Inhaled Oxygen Concentration - - Weight 99.8 kg (220 lb) 08/13/2017 12:19 PM APPLICATION ARCHITECT Height 193 cm (6' 4) 08/13/2017 12:19 PM APPLICATION ARCHITECT Body Mass Index 26.78 08/13/2017 12:19 PM APPLICATION ARCHITECT Plan of Treatment Health Maintenance Due Date Last Done Comments HIV SCREENING 2004 HEPATITIS C SCREENING 04/26/2007 DTAP/TDAP/TD VACCINES (1 - Tdap) 2008 HEPATITIS B VACCINE (1 of 3 - 19+ 3-dose series) 2008 HPV VACCINE (1 - 3-dose SCDM series) 2016 DEPRESSION SCREENING 06/06/2024 COVID-19 VACCINE (1 - 2024-2 6 season) 2025 INFLUENZA VACCINE (#1) 2025 ZOSTER VACCINE (1 of 2) 2039 HIB VACCINE Aged Out No longer eligi ble based on patient's age to complete this topic MENINGOCOCCAL (Group B) VACC INE SHARED DECISION-MAKING Aged Out No longer eligibl e based on patient's age to complete this topic MENINGOCOCCAL GROUPS A/C/Y/W VACCINE Aged Out No longer eligible b ased on patient's age to complete this topic PNEUMOCOCCAL VACCINE Aged Out No long er eligible based on patient's age to complete this topic Insurance [address]
[2025-05-09] MEDS: DOXYCYCLINE HYCLATE 100 MG TABLET PO (10:48)
[2025-05-09] MEDS: cefTRIAXone 1 GM VIAL 0.5 GM IM (10:49)
[2025-05-09] MEDS: LIDOCAINE 1% LOCAL INJ 10 ML VIAL (10:57)
[2025-05-09 11:00] LABS: Trichomonas Vag PCR NOT DETECTED (NOT DETECTE)
--- OUTSIDE RECORDS SUMMARY | 2025-05-09 11:03 | XMS_ITS | Clinical Summary ---
Author Organization [facility] [employer] Address [address] [facility] [place] [address] Care Team Providers Care Extraction Operator Name Role Phone Unavailable Primary Care Provider Unavailabl e Source Comments [facility] [employer],non-owned Affiliates and Associated Physician Practices is amultiple site organization consisting of ambulatory clinics and hospital sitesin [place], [place], [place] and [place]. This disclosure is being madepursuant to the Care Everywhere program and may not contain all information available regarding this patient. Last updated 18.[facility] [employer] Allergies No known active allergies Medications * Be aware that medications may not be up to date on this document. Alwaysverify current medications with the patient. 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 Gender Identity Not on file Sexual Orientation Not on file Last Filed Vital Signs Vital Sign Reading Time Taken Comments Blood Pressure 118/80 08/13/2017 12:19 PM IN HOME SALES REPRESENTATIVE Pulse 89 08/13/2017 12:19 PM IN HOME SALES REPRESENTATIVE Temperature 36.8 C (98.3 F) 08/13/2017 12:19 PM IN HOME SALES REPRESENTATIVE Respiratory Rate 14 08/13/2017 12:19 PM IN HOME SALES REPRESENTATIVE Oxygen Saturation 97% 08/13/2017 12:19 PM IN HOME SALES REPRESENTATIVE Inhaled Oxygen Concentration - - Weight 99.8 kg (220 lb) 08/13/2017 12:19 PM IN HOME SALES REPRESENTATIVE Height 193 cm (6' 4) 08/13/2017 12:19 PM IN HOME SALES REPRESENTATIVE Body Mass Index 26.78 08/13/2017 12:19 PM IN HOME SALES REPRESENTATIVE Plan of Treatment Health Maintenance Due Date [...] age to complete this topic Insurance [address]
--- OUTSIDE RECORDS SUMMARY | 2025-05-09 11:03 | XMS_ITS | Clinical Summary ---
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
--- NOTE | 2025-05-09 13:26 | ED.MALEGU ---
HPI - Male Genitourinary General Chief complaint: Urogenital-Male Stated complaint: RECTAL PAIN X1D Time Seen by Provider: 05/09/25 09:37 History of Present Illness HPI Narrative: Patient presenting here with some rectal pain and urethral discharge, he does have intercourse with other men with anal receptive intercourse also. No systemic symptoms. Related Data Allergies Allergy/AdvReac Type Severity Reaction Status Date / Time No Known Allergies Allergy Verified 05/09/25 09:39 Review of Systems Review of Systems: All systems reviewed & are unremarkable except as noted in HPI and below PMFSH Past Medical History Medical History History of anxiety Social History Social History Smoking packs per day: 1 Smoking cigarettes per day: 20.0 Years smoked: 11 Smoking pack-years: 11.00 Smoking status: Current every day smoker Tobacco type: cigarettes Alcohol intake: never Substance use: never Substance use type: does not use Living arrangements: with family Gender identity (if verbalized by the patient): Male Spiritual care concerns: No Exam Narrative: EXAMINATION OF ORGAN SYSTEMS/BODY AREAS: Constitutional: Vital signs per nursing GENERAL:[No acute distress, non-toxic appearing.] HEAD: Normal with no signs of head trauma. EYES: EOMI, conjunctiva normal ENT: Hearing grossly intact LUNGS: Nonlabored breathing. HEART: [Regular rate and rhythm] ABD: [Soft], [nontender to palpation] : No significant tenderness to palpation of testicles or swelling of testicles. No obvious discharge from urethra RECTAL: No tenderness or blood or purulence EXT: Normal range of motion SKIN: [No rashes or lesions.] NEURO: [Alert. No gross focal sensory or strength deficits.] PSYCH: Normal affect Course Vital Signs Vital signs: Vital Signs Temperature 97.8 F 05/09/25 09:34 Pulse Rate 85 05/09/25 09:34 Respiratory Rate 16 05/09/25 09:34 Blood Pressure 147/91 H 05/09/25 09:34 Pulse Oximetry 98 05/09/25 09:34 Temperature 97.8 F 05/09/25 09:34 Pulse Rate 85 05/09/25 09:34 Respiratory Rate 16 05/09/25 09:34 Blood Pressure 147/91 H 05/09/25 09:34 Pulse Oximetry 98 05/09/25 09:34 [facility] MDM Narrative Medical decision making narrative: Patient presenting here with some rectal discomfort and her penile discharge, concern for STDs, he is sexually active with men, he has no systemic symptoms. Well-appearing here, abdomen soft nontender, no palpable rectal abscess, swelling or significant tenderness to the testicles/scrotum. Given his symptoms I will test for STDs and treated empirically for prostatitis and epididymitis. Return precautions provided and he has follow-up with his PCP, his partner has an appointment in an hour to get tested and treated also. Differential Diagnosis Differential Diagnosis: Proctitis, STD, epididymitis Lab Data Labs: Lab Results 05/09/25 Range/Units 09:43 C. trachomatis (PCR) Not detected (NOT DETECTE) N. gonorrhoeae (PCR) Not detected (NOT DETECTE) T. vaginalis (PCR) Not detected (NOT DETECTE) Discharge Plan Discharge Clinical Impression: Acute proctitis, Epididymitis Patient Disposition: Home Condition: Stable Instructions: Antibiotic Form, Proctitis (ED), Epididymitis (ED) Additional Instructions: Please take the antibiotics as prescribed. You will need to follow-up on your culture results, because you may need to take the antibiotics for longer course. If your symptoms worsen, please return to the ER. Reported will need to be tested and treated also in you should refrain from sexual activity for at least 1-2 weeks. Patient Language: Luxembourgish Prescriptions: New levofloxacin 500 mg tablet 500 mg PO DAILY Qty: 9 0RF doxycycline hyclate 100 mg capsule 100 mg PO Q12H 7 Days Qty: 14 0RF No Action omeprazole 40 mg capsule,delayed release(DR/EC) 40 mg PO DAILY Qty: 90 1RF albuterol sulfate [Proventil HFA] 90 mcg/actuation HFA aerosol inhaler 2 puff inhalation Q4-6H PRN (Reason: shortness of breath or wheezing) Qty: 8.5 5RF prednisone 20 mg tablet 60 mg PO DAILY 4 Days Qty: 12 0RF fluoxetine 20 mg capsule See Rx Instructions .ROUTE .COMPLEX Qty: 30 0RF Dose Instruction: TAKE 1 CAPSULE BY MOUTH DAILY Rx Instructions: TAKE 1 CAPSULE BY MOUTH DAILY Follow-up/Referrals: Starr Milligan APRN [Primary Care Provider, Internal Medicine] - 2 Days
== END 2025-05-09 10:53 | disposition home or self-care (01) ==
PROVIDERS: Emergency Provider Emergency Medicine; PCP Nurse Practitioner Family
DX: K62.89 Other specified diseases of anus and rectum (principal); N45.1 Epididymitis; F17.210 Nicotine dependence, cigarettes, uncomplicated
CPT/HCPCS: 87491; 87591; 87661; 96372; 99284; A9270; J0696; J2003